=== PATIENT | female | born 1985 | race Caucasian/White ===

== ENCOUNTER → 2017-03-31 | Outpatient (CLI) | payer MEDICARE, MEDICAID ==
--- NOTE | 2017-04-01 09:48 | RADIOLOGY REPORT (SQ) ---
EXAM DESCRIPTION: MRI HEAD COMBO COMPLETED DATE/TIME: 03/31/2017 6:21 pm REASON FOR STUDY: R90.89 OTH ABNORMAL FINDINGS ON DIAGNOSTIC IMAGING OF CNSL R90.89 OTH ABNORMAL FI NDINGS ON DIAGNOSTIC IMAGING OF CNSL COMPARISON: None. TECHNIQUE: Multiplanar imaging includes noncontrasted T1, T2, FLAIR, diffusion with ADC map and post gadolinium contrast T1 sequences. Images stored on PACS. CONTRAST TYPE AND DOSE: 10 mL Multihance. RENAL FUNCTION: GFR > 60. LIMITATIONS: Artifact from eye makeup FINDINGS: ANATOMY: No developmental anomalies. Normal vascular flow voids. Pituitary fossa normal. CSF SPACES: Normal in size and contour. No hemorrhage. CEREBRUM: Small foci of increased FLAIR/ T2 signal noted in the deep periventricular white matter rig ht frontal and parietal region, left frontal subcortical white matter, and in the posterolateral left thalamus, likely reflecting old demyelinating disease. No MRI findings worrisome for acute ischemic change, intracranial hemorrhage, mass effect, for midlin e shift. No abnormal brain parenchymal enhancement. POSTERIOR FOSSA: No signal alteration. No hemorrhage. No edema, masses, or mass effect. Internal leeanne tory canals, cerebellopontine angles, mastoids normal. No enhancing lesions. No abnormal enhancement post contrast. DIFFUSION IMAGING: Negative for acute or subacute infarction. ORBITS: Artifact from eye makeup. PARANASAL SINUSES: No fluid levels. Mucosa normal. OTHER: No other significant finding. IMPRESSION: Few chronic appearing white matter lesions compatible with the clinical history of demye linating disease. No acute findings EVIDENCE OF ACUTE STROKE: NO. TECHNICAL DOCUMENTATION: JOB ID: [id number] [employer]- All Rights Reserved
== END ==
LOC: RAD 16:17
PROVIDERS: ATTEND Psychiatry & Neurology Neurology
DX: R90.89 Other abnormal findings on diagnostic imaging of central nervous system (principal)
CPT/HCPCS: 70553; 82565

== ENCOUNTER 2017-07-22 13:21 | Emergency (ER) | payer MEDICARE, MEDICAID ==
--- NOTE | 2017-07-22 14:02 | ER Document Report ---
ED Medical Screen (RME) - General Chief Complaint: Bloody Stools Stated Complaint: BLOOD IN STOOL,ABDOMINAL PAIN,SWELLING Time Seen by Provider: 07/22/17 13:58 Notes: This 31-year-old female patient with history of MS reports 2 week history of loose stools and diarrhea with bright red blood spraying out. She says she is usually constipated. This has occurred in the past and was reportedly possibly related to polyps that have been removed since then. She has been feeling weak, did not do her MS shot today or yesterday due to feeling so tired and weak. I have greeted and performed a rapid initial assessment of this patient. A comprehensive ED assessment and evaluation of the patient, analysis of test results and completion of the medical decision making process will be conducted by additional ED providers. TRAVEL OUTSIDE OF THE [place] IN LAST 30 DAYS: No - Related Data Allergies/Adverse Reactions: Penicillins Allergy (Intermediate, Verified 07/22/17 13:29) Hives Past Medical History - Social History Frequency of alcohol use: Rare Drug Abuse: None Renal/ Medical History: Denies: Hx Peritoneal Dialysis Physical Exam - Vital signs Vitals: Temp Pulse Resp BP Pulse Ox 98.2 F 94 18 118/84 97 07/22/17 13:30 07/22/17 13:30 07/22/17 13:30 07/22/17 13:30 07/22/17 13:30 Course - Vital Signs Vital signs: Temp Pulse Resp BP Pulse Ox 98.2 F 94 18 118/84 97 07/22/17 13:30 07/22/17 13:30 07/22/17 13:30 07/22/17 13:30 07/22/17 13:30
[2017-07-22 15:16] LABS: ALANINE AMINOTRANSFERASE 34 U/L (9-52); ALBUMIN 4.3 g/dL (3.5-5.0); ALKALINE PHOSPHATASE 57 U/L (38-126); ANION GAP 11 (5-19); ASPARTATE AMINO TRANSFERASE 20 U/L (14-36); BILIRUBIN,DIRECT 0.2 mg/dL (0.0-0.4); BILIRUBIN,TOTAL 0.2 mg/dL (0.2-1.3); BLOOD UREA NITROGEN 14 mg/dL (7-20); CALCIUM 9.9 mg/dL (8.4-10.2); CARBON DIOXIDE 27 mmol/L (22-30); CHLORIDE 104 mmol/L (98-107); GLUCOSE 93 mg/dL (75-110); POTASSIUM 4.8 mmol/L (3.6-5.0); SODIUM 142.1 mmol/L (137-145); TOTAL PROTEIN 7.3 g/dL (6.3-8.2)
[2017-07-22] MEDS ORDERED: ONDANSETRON HCL INJ/PF 4 MG/2 ML SDV IV ONE (15:53)
[2017-07-22] MEDS ORDERED: NORMAL SALINE 1000 ML 1,000 ML IV ONE (15:53)
[2017-07-22] MEDS ORDERED: HYDROMORPHONE HCL INJ/PF 2 MG/ML AMPULE IV ONE (15:55)
--- NOTE | 2017-07-22 15:59 | ER Document Report ---
ED GI Bleed / Rectal Pain - General Chief Complaint: Bloody Stools Stated Complaint: BLOOD IN STOOL,ABDOMINAL PAIN,SWELLING Time Seen by Provider: 07/22/17 13:58 Mode of Arrival: Ambulatory Information source: Patient TRAVEL OUTSIDE OF THE [place] IN LAST 30 DAYS: No - HPI Patient complains to provider of: Bright red bld from rect. Notes: This is a 31-year-old female with a history of MS. She states that for the last 2 weeks she has been having extensive diarrhea. She states that anytime she eats or drinks anything at all she immediately has an episode of diarrhea. She has been having bright red blood in her stool as well as when she wipes. She complains of some abdominal pain with abdominal distention. She states that the pain radiates into her back. She denies any nausea or vomiting. She denies fever. She denies any dysuria or hematuria. She is not on any blood thinning medications. She denies any recent travel outside the [place], recent antibiotic use, recent bad food, known sick contacts. She does report that she has problems with irritable bowel and is not uncommon for her to have some episodes of diarrhea but never this bad. She has had prior she denies any chest pain or shortness of breath. She does complain of some fatigue. Polyps removed via colonoscopy. She has no other complaints at this time. - Related Data Allergies/Adverse Reactions: Penicillins Allergy (Intermediate, Verified 07/22/17 13:29) Hives Home Medications: Levothyroxine, estradiol, oxybutine, gapapentin, copaxone 40mg -W-, baclofen, Iron supplement, Vitamin D, Metoprolol Past Medical History - Social History Smoking Status: Current Every Day Smoker Frequency of alcohol use: Rare Drug Abuse: None Family History: Reviewed & Not Pertinent Patient has suicidal ideation: No Patient has homicidal ideation: No Renal/ Medical History: Denies: Hx Peritoneal Dialysis Past Surgical History: Reports: Hx Abdominal Surgery, Hx Hysterectomy Review of Systems - Review of Systems -: Yes All other systems reviewed and negative Physical Exam - Vital signs Vitals: Temp Pulse Resp BP Pulse Ox 98.2 F 94 18 118/84 97 07/22/17 13:30 07/22/17 13:30 07/22/17 13:30 07/22/17 13:30 07/22/17 13:30 - Notes Notes: GENERAL: alert, cooperative, nontoxic, no distress. HEAD: normocephalic, atraumatic EYES: conjunctiva pink without discharge, no external redness or swelling. EARS: no external swelling, no external redness NOSE: atraumatic, no external swelling MOUTH/THROAT: mucous membranes moist and pink, posterior pharynx without erythema, swelling, exudate. No trismus or drooling. NECK: soft, supple, full range of motion, no meningismus. CHEST: no distress, lungs clear and equal throughout. No wheezing, rales, rhonchi. CARDIAC: regular rate and rhythm, no murmur, normal capillary refill, normal pulses. No peripheral edema noted. ABDOMEN: Soft, tenderness across the lower abdomen. Mild abdominal distention noted. Guarding noted. No rebound tenderness. No obvious mass. Bowel sounds are present throughout. BACK: full range of motion, no CVA tenderness. EXTREMITIES: full range of motion of all extremities. No redness, no swelling. NEURO: alert and oriented x 3, no focal deficits, full range of motion of all extremities. PYSCH: appropriate mood, affect. Patient is cooperative. SKIN: pink, warm, dry, no rash. Course - Re-evaluation Re-evalutation: 07/22/17 18:10 Patient is nontoxic appearing with stable vitals. She is here with complaints of bloody stool and abdominal pain for the past few weeks. She has a benign exam. She does have tenderness to her lower abdomen with some mild distention. No rigidity. She is afebrile. Her hemoglobin is 13. White count is normal. LFTs and lipase are unremarkable. Urinalysis shows no signs of infection. Patient had a CT of the abdomen and pelvis with IV contrast showing colitis worse in the transverse colon. Her C. difficile PCR was negative. Stool cultures are currently pending at this time. This point the patient is feeling better. She will be given Cipro and Flagyl in the emergency department will be discharged home with Cipro, Flagyl, [place]. She will be given a referral to GI. She is instructed to follow-up with GI at the next available appointment. She is instructed to return the emergency department or follow-up sooner if she has worsening pain, high fevers, persistent vomiting, significant bleeding, passing out, or has any further concerns. The patient is noted to have elevated blood pressure during today's emergency department visit. The patient was informed of this finding. The patient was instructed that this may be related to pre-hypertension and requires further evaluation with a primary care provider. The patient has no hypertensive symptoms at this time. The patient's emergency department workup and current diagnosis were explained to the patient and or family. Follow-up instructions were provided. Medications if prescribed were discussed. Instructions for when to return to the emergency department including specific worrisome symptoms were discussed with the patient and/or family. - Vital Signs Vital signs: Temp Pulse Resp BP Pulse Ox 98.2 F 94 18 118/84 97 07/22/17 13:30 07/22/17 13:30 07/22/17 13:30 07/22/17 13:30 07/22/17 13:30 - Laboratory Result Diagrams: 07/22/17 14:48 07/22/17 14:36 Laboratory results interpreted by me: 07/22/17 07/22/17 14:48 15:56 MCV 100 H MCH 34.0 H Urine Bilirubin SMALL H Urine Urobilinogen 2.0 H - Diagnostic Test Radiology reviewed: Image reviewed, Reports reviewed - CT the abdomen and pelvis with IV contrast shows colitis in the transverse colon. No perforation. Discharge - Discharge Clinical Impression: Colitis Condition: Stable Disposition: HOME, SELF-CARE Instructions: Colitis, Nonspecific ([facility]), Family Physicians / Practices Additional Instructions: Take medications as prescribed. Drink plenty of fluids. Follow-up with GI at the next available appointment. Follow-up sooner for increasing pain, high fever, persistent vomiting, severe bleeding, passing out, chest pain, or for any further concerns. Prescriptions: Ciprofloxacin HCl [Cipro 500 mg Tablet] 500 mg PO BID #20 tablet Hydrocodone/Acetaminophen [Springs 5-325 mg Tablet] 2 tab PO Q6H PRN #15 tab PRN Reason: Metronidazole [Flagyl 500 mg Tablet] 500 mg PO Q6H #40 tablet Forms: Elevated Blood Pressure, Smoking Cessation Education Referrals: LINDSAY GONZALEZ PA-C [Primary Care Provider] - Follow up as needed ELSIE LARA MD [ACTIVE STAFF] - Follow up as needed
[2017-07-22 16:15] LABS: APPEARANCE,URINE SLIGHTLY-CLOUDY; BILIRUBIN,URINE SMALL (NEGATIVE); COLOR,URINE YELLOW; GLUCOSE, URINE NEGATIVE (NEGATIVE); KETONES,URINE NEGATIVE (NEGATIVE); LEUKOCYTE ESTERASE,URINE NEGATIVE (NEGATIVE); NITRITE,URINE NEGATIVE (NEGATIVE); PROTEIN,URINE NEGATIVE (NEGATIVE)
[2017-07-22 17:10] LABS: ABSOLUTE EOSINOPHILS # (AUTO) 0.1 10^3/uL (0.0-0.6); ABSOLUTE LYMPHOCYTES (AUTO) 2.6 10^3/uL (0.5-4.7); ABSOLUTE MONOCYTES (AUTO) 0.6 10^3/uL (0.1-1.4); ABSOLUTE NEUT (AUTO) 6.9 10^3/uL (1.7-8.2); BASOPHILS % (AUTO) 0.4 % (0-2); EOSINOPHILS % (AUTO) 1.4 % (0-6); HEMATOCRIT 40.6 % (36.0-47.0); HEMOGLOBIN 13.8 g/dL (12.0-15.5); LYMPHOCYTES % (AUTO) 25.4 % (13-45); MEAN CORPUSCULAR HGB CONC 33.9 g/dL (32.0-36.0); MEAN CORPUSCULAR VOLUME 100 fl (80-97); MONOCYTES % (AUTO) 5.4 % (3-13); PLATELET COUNT 235 10^3/uL (150-450); RED BLOOD COUNT 4.04 10^6/uL (3.72-5.28); SEGMENTED NEUTROPHILS % (AUTO) 67.4 % (42-78); TOTAL CELLS COUNTED % (AUTO) 100 %; WHITE BLOOD COUNT 10.2 10^3/uL (4.0-10.5)
--- NOTE | 2017-07-22 17:53 | RADIOLOGY REPORT (SQ) ---
EXAM DESCRIPTION: CT ABD/PELVIS WITH IV ONLY COMPLETED DATE/TIME: 07/22/2017 5:42 pm REASON FOR STUDY: abdo pain, distention, bloody stool COMPARISON: None. TECHNIQUE: CT scan of the abdomen and pelvis performed using helical scanning technique with dynamic intravenous contrast injection. No oral contrast. Images reviewed with lung, soft tissue, and bone windows. Reconstructed coronal and sagittal MPR images reviewed. Delayed images for evaluation of the urinary system also acquired. All images stored on PACS. All CT scanners at this facility use dose modulation, iterative reconstruction, and/or weight based d osing when appropriate to reduce radiation dose to as low as reasonably achievable (ALARA). [facility]: Dose Right [facility]: CareDose [facility]: Dose Right [facility]: Teradose 4D [facility]: Speakap CONTRAST TYPE AND DOSE: contrast/concentration: Isovue 370.00 mg/ml; Total Contrast Delivered: 68.0 ml; Total Saline Delivered: 65.0 ml RENAL FUNCTION: None required. The patient is less than 50 years old. RADIATION DOSE: CT Rad equipment meets quality standard of care and radiation dose reduction techniq ues were employed. CTDIvol: 5.2 - 6.7 mGy. DLP: 562 mGy-cm.. LIMITATIONS: None. FINDINGS: LOWER CHEST: Dependent subsegmental atelectasis. LIVER: Normal size. Tiny low attenuating lesion right hepatic lobe too small to adequately character ize but statistically represents a benign cyst. No additional masses. No dilated ducts. SPLEEN: Normal size. No focal lesions. PANCREAS: No masses. No significant calcifications. No adjacent inflammation or peripancreatic fluid collections. Pancreatic duct not dilated. GALLBLADDER: No identified stones by CT criteria. No inflammatory changes to suggest cholecystitis. ADRENAL GLANDS: No significant masses or asymmetry. RIGHT KIDNEY AND URETER: No solid masses. No significant calcifications. No hydronephrosis or hyd roureter. LEFT KIDNEY AND URETER: No solid masses. No significant calcifications. No hydronephrosis or hydr oureter. AORTA AND VESSELS: No aneurysm. No dissection. Renal arteries, SMA, celiac without stenosis. RETROPERITONEUM: No retroperitoneal adenopathy, hemorrhage or masses. BOWEL AND PERITONEAL CAVITY: Mucosal thickening with surrounding inflammation predominately involving the transverse colon the with lesser involvement of the distal ascending and proximal descending col on compatible with colitis. Small bowel loops are normal. No pneumatosis, abscess, or free air. No obstruction. APPENDIX: Normal. PELVIS: No mass. No free fluid. Normal bladder. ABDOMINAL WALL: No masses. No hernias. BONES: No significant or acute findings. OTHER: No other significant finding. IMPRESSION: COLITIS MOST SEVERELY AFFECTING THE TRANSVERSE COLON WITH MAY BE INFECTIOUS OR INFLAMMAT ORY. CORRELATE WITH PATIENT'S CLINICAL HISTORY. TECHNICAL DOCUMENTATION: JOB ID: [id number] Quality ID # [id number]: Final reports with documentation of one or more dose reduction techniques (e.g., Au tomated exposure control, adjustment of the mA and/or kV according to patient size, use of iterative reconstruction technique) 2010 [employer]- All Rights Reserved Reading location - IP/workstation name: [email or web address]
[2017-07-22] MEDS ORDERED: CIPROFLOXACIN 400 MG/D5W RTU 400 MG/200 ML RTUPB IV ONE (18:09)
[2017-07-22] MEDS ORDERED: METRONIDAZOLE 500 MG/NS RTU 100 ML IV ONE (18:09)
[2017-07-22] MEDS ORDERED: HYDROCODONE/ACETAMINOPHEN 5-325 MG TABLET PO ONE (18:10)
[2017-07-22 19:59] VITALS: BP 113/70
== END 2017-07-22 19:55 | disposition home or self-care (01) ==
LOC: ER 13:21
DX: K52.9 Noninfective gastroenteritis and colitis, unspecified (principal); K92.1 Melena; R10.9 Unspecified abdominal pain; R19.7 Diarrhea, unspecified; G35 Multiple sclerosis; R14.0 Abdominal distension (gaseous); M54.9 Dorsalgia, unspecified; R03.0 Elevated blood-pressure reading, without diagnosis of hypertension; Z79.899 Other long term (current) drug therapy; F17.200 Nicotine dependence, unspecified, uncomplicated
CPT/HCPCS: 99284; 96361; 96375; 96365; 96368; 36415; 87045; 87205; 85025; 82272; 80053; 81001; 87493; 74177; J1170; J2405; J7030; J0744; A9270

== ENCOUNTER → 2017-08-17 | Outpatient (CLI) | payer MEDICARE, MEDICAID | LOC: WI 11:08 | PROVIDERS: ATTEND Nurse Practitioner Family | DX: Z12.31 Encounter for screening mammogram for malignant neoplasm of breast (principal) ==

== ENCOUNTER → 2017-08-26 | Outpatient (CLI) | payer MEDICARE, MEDICAID ==
--- NOTE | 2017-08-26 14:33 | WOMENS IMAGING REPORT ---
EXAM DESCRIPTION: BILAT DIAGNOSTIC MAMMO W/CAD; U/S BREAST UNILAT LIMITED COMPLETED DATE/TIME: 08/26/2017 12:41 pm; 08/26/2017 1:27 pm REASON FOR STUDY: UNSPECIFIED LUMP; N63.21 N63.11; RT BREAST LUMP N63.11 N63.11 UNSPECIFIED LUMP IN THE RIGHT BREAST, UPPER OUTER JASWANT N63.21 UNSPECIFIED LUMP IN THE LEFT BREAST, UPPER OUTER QUAD COMPARISON: None. TECHNIQUE: Standard craniocaudal and mediolateral oblique views of each breast recorded using digita l acquisition. Additional right breast 90 mediolateral view, right breast cone compression in the cc and x cc orien tations. Right breast ultrasound was also performed. LIMITATIONS: None. FINDINGS: RIGHT BREAST MASSES: No suspicious masses. CALCIFICATIONS: No new or suspicious calcifications. ARCHITECTURAL DISTORTION: None. DEVELOPING DENSITY: None. ASYMMETRY: None noted. OTHER: No other significant findings. LEFT BREAST MASSES: No suspicious masses. CALCIFICATIONS: No new or suspicious calcifications. ARCHITECTURAL DISTORTION: None. DEVELOPING DENSITY: None. ASYMMETRY: None noted. OTHER: No other significant finding. Read with the assistance of CAD: .[facility] - R2 Cenova Version 1.3 .[facility] Imaging - R2 Cenova Version 1.3 .[facility] - R2 Cenova Version 2.4 .[facility] [place] R2 Cenova Version 2.4 .[facility] - R2 Butadiene Converter Operator Version 9.2 Right breast ultrasound: Patient indicates a palpable abnormality in the upper outer quadrant right breast 10 to 11 o'clock po sition. Ultrasound of the area of concern indicated by the patient demonstrates no focal findings. No cysts. No solid nodules. No worrisome acoustic absorption. IMPRESSION: No mammographic or sonographic evidence for malignancy right breast. No mammographic evidence for malignancy left breast BREAST DENSITY: b. There are scattered areas of fibroglandular density. BIRAD: 1 Negative. RECOMMENDATION: RECOMMENDED FOLLOW UP: Please begin yearly bilateral screening mammography/ tomosynt hesis at age 40. Patient can begin screening sooner, if she is found to have an increased lifetime r isk of breast cancer using the Ericka model assessment SPECIFIC INTERVENTION/IMAGING/CONSULTATION RECOMMENDED:No additional intervention/ imaging/consultati on needed at this time. COMMUNICATION:Patient notified by letter COMMENT: The patient has been notified of the results by letter per MQSA requirements. Additional no tification policies are in place for contacting patient with suspicious or incomplete findings. Quality ID #225: The [employer] recommends an annual screening mammogram for women aged 40 years or over. This facility utilizes a reminder system to ensure that all patients receive reminder letters, and/or direct phone calls for appointments. This includes reminders for routine scr eening mammograms, diagnostic mammograms, or other Breast Imaging Interventions when appropriate. Th is patient will be placed in the appropriate reminder system. The [employer] (ACR) has developed recommendations for screening MRI of the breast s in certain patient populations, to be used in conjunction with mammography. Breast MRI surveillanc e may be appropriate for women with more than 20% lifetime risk of developing breast cancer as deter mined by genetic testing, significant family history of the disease, or history of mantle radiation f or Hodgkins Disease. ACR Practice Guidelines 2008. TECHNICAL DOCUMENTATION: FINDING NUMBER: (1) ASSESSMENT: (1) JOB ID: [id number] 2021 [employer]- All Rights Reserved Reading location - IP/workstation name: [email or web address]
--- NOTE | 2017-08-26 14:33 | WOMENS IMAGING REPORT ---
EXAM DESCRIPTION: BILAT DIAGNOSTIC MAMMO W/CAD; U/S BREAST UNILAT LIMITED COMPLETED DATE/TIME: 08/26/2017 12:41 pm; 08/26/2017 1:27 pm REASON FOR STUDY: UNSPECIFIED LUMP; N63.21 N63.11; RT BREAST LUMP N63.11 N63.11 UNSPECIFIED LUMP IN THE RIGHT BREAST, UPPER OUTER JASWANT N63.21 UNSPECIFIED LUMP IN THE LEFT BREAST, UPPER OUTER QUAD COMPARISON: None. TECHNIQUE: Standard craniocaudal and mediolateral oblique views of each breast recorded using digita l acquisition. Additional right breast 90 mediolateral view, right breast cone compression in the cc and x cc orien tations. Right breast ultrasound was also performed. LIMITATIONS: None. FINDINGS: RIGHT BREAST MASSES: No suspicious masses. CALCIFICATIONS: No new or suspicious calcifications. ARCHITECTURAL DISTORTION: None. DEVELOPING DENSITY: None. ASYMMETRY: None noted. OTHER: No other significant findings. LEFT BREAST MASSES: No suspicious masses. CALCIFICATIONS: No new or suspicious calcifications. ARCHITECTURAL DISTORTION: None. DEVELOPING DENSITY: None. ASYMMETRY: None noted. OTHER: No other significant finding. Read with the assistance of CAD: .[facility] - R2 Cenova Version 1.3 .[facility] Imaging - R2 Cenova Version 1.3 .[facility] Imaging - R2 Cenova Version 2.4 .[facility] [place] R2 Cenova Version 2.4 .[facility] - R2 Digital Asset Coordinator Version 9.2 Right breast ultrasound: Patient indicates a palpable abnormality in the upper outer quadrant right breast 10 to 11 o'clock po sition. Ultrasound of the area of concern indicated by the patient demonstrates no focal findings. No cysts. No solid nodules. No worrisome acoustic absorption. IMPRESSION: No mammographic or sonographic evidence for malignancy right breast. No mammographic evidence for malignancy left breast BREAST DENSITY: b. There are scattered areas of fibroglandular density. BIRAD: 1 Negative. RECOMMENDATION: RECOMMENDED FOLLOW UP: Please begin yearly bilateral screening mammography/ tomosynt hesis at age 40. Patient can begin screening sooner, if she is found to have an increased lifetime r isk of breast cancer using the Ericka model assessment SPECIFIC INTERVENTION/IMAGING/CONSULTATION RECOMMENDED:No additional intervention/ imaging/consultati on needed at this time. COMMUNICATION:Patient notified by letter COMMENT: The patient has been notified of the results by letter per MQSA requirements. Additional no tification policies are in place for contacting patient with suspicious or incomplete findings. Quality ID #225: The [employer] recommends an annual screening mammogram for women aged 40 years or over. This facility utilizes a reminder system to ensure that all patients receive reminder letters, and/or direct phone calls for appointments. This includes reminders for routine scr eening mammograms, diagnostic mammograms, or other Breast Imaging Interventions when appropriate. Th is patient will be placed in the appropriate reminder system. The [employer] (ACR) has developed recommendations for screening MRI of the breast s in certain patient populations, to be used in conjunction with mammography. Breast MRI surveillanc e may be appropriate for women with more than 20% lifetime risk of developing breast cancer as deter mined by genetic testing, significant family history of the disease, or history of mantle radiation f or Hodgkins Disease. ACR Practice Guidelines 2008. TECHNICAL DOCUMENTATION: FINDING NUMBER: (1) ASSESSMENT: (1) JOB ID: [id number] [employer]- All Rights Reserved Reading location - IP/workstation name: [facility]
== END ==
LOC: WI 12:13
PROVIDERS: ATTEND Physician Assistant Medical
DX: N63.11 Unspecified lump in the right breast, upper outer quadrant (principal); N63.21 Unspecified lump in the left breast, upper outer quadrant
CPT/HCPCS: 76642; 77066

== ENCOUNTER 2017-09-24 15:12 | Emergency (ER) | payer MEDICARE, MEDICAID ==
[2017-09-24] MEDS ORDERED: IBUPROFEN 600 MG TABLET PO ONE (15:54)
--- NOTE | 2017-09-24 16:34 | RADIOLOGY REPORT (SQ) ---
EXAM DESCRIPTION: FOOT RIGHT COMPLETE COMPLETED DATE/TIME: 09/24/2017 4:20 pm REASON FOR STUDY: pain and injury COMPARISON: None. NUMBER OF VIEWS: Three views. TECHNIQUE: AP, lateral and oblique radiographic images acquired of the right foot. LIMITATIONS: None. FINDINGS: MINERALIZATION: Normal. BONES: No acute fracture or dislocation. No worrisome bone lesions. JOINTS: No effusions. SOFT TISSUES: No soft tissue swelling. No foreign body. OTHER: No other significant finding. IMPRESSION: NEGATIVE STUDY OF THE RIGHT FOOT. NO RADIOGRAPHIC EVIDENCE OF ACUTE INJURY. TECHNICAL DOCUMENTATION: JOB ID: [id number] [employer]- All Rights Reserved Reading location - IP/workstation name: [email or web address]
--- NOTE | 2017-09-24 16:34 | RADIOLOGY REPORT (SQ) ---
EXAM DESCRIPTION: ANKLE RIGHT COMPLETE COMPLETED DATE/TIME: 09/24/2017 4:20 pm REASON FOR STUDY: pain and injury COMPARISON: None. NUMBER OF VIEWS: Three views. TECHNIQUE: AP, lateral, and oblique radiographic images acquired of the right ankle. LIMITATIONS: None. FINDINGS: MINERALIZATION: Normal. BONES: No acute fracture or dislocation. No worrisome bone lesions. JOINTS: No effusions. SOFT TISSUES: No soft tissue swelling. No foreign body. OTHER: No other significant finding. IMPRESSION: NEGATIVE STUDY OF THE RIGHT ANKLE. NO RADIOGRAPHIC EVIDENCE OF ACUTE INJURY. TECHNICAL DOCUMENTATION: JOB ID: [id number] [employer]- All Rights Reserved Reading location - IP/workstation name: [email or web address]
--- NOTE | 2017-09-24 17:04 | ER Document Report ---
ED Extremity Problem, Lower - General Chief Complaint: Ankle Injury Stated Complaint: ANKLE INJURY Time Seen by Provider: 09/24/17 15:53 Mode of Arrival: Wheelchair Information source: Patient Notes: 32-year-old female presented to ED for pain to the right foot and ankle after she was in the nose and tried to get out of her for left and she ended up hitting something in the [place]. Patient states he jumped out of the way of a forklift because she has multiple sclerosis and she was scared that she would get some type of infection of the forklift hit her. Patient is alert and oriented, pupils equal and react to light, speaking in full sentences, respirations regular and unlabored, patient is able to walk with some discomfort. TRAVEL OUTSIDE OF THE [place] IN LAST 30 DAYS: No - HPI Patient complains to provider of: Injury, Pain Location: Ankle, Foot Occurred: Just prior to arrival Where: Public place Onset/Duration: Sudden Quality of pain: Achy, Pressure Severity: Moderate Pain Level: 3 Context: Other - Hit her foot and ankle on something in the low store Recent injury: Yes Associated symptoms: Painful ambulation Exacerbated by: Hanging down, Movement, Walking Relieved by: Nothing - Related Data Allergies/Adverse Reactions: Penicillins Allergy (Intermediate, Verified 07/22/17 13:29) Hives Past Medical History - General Information source: Patient - Social History Smoking Status: Current Every Day Smoker Cigarette use (# per day): Yes - 7 cigarettes a day Chew tobacco use (# tins/day): No Smoking Education Provided: Yes - 4 minutes Frequency of alcohol use: Social Drug Abuse: None Lives with: Family Family History: Reviewed & Not Pertinent Patient has suicidal ideation: No Patient has homicidal ideation: No - Past Medical History Cardiac Medical History: Reports: Other - She had tachycardia that is being evaluated Pulmonary Medical History: Reports: None EENT Medical History: Reports: None Neurological Medical History: Reports: None Endocrine Medical History: Reports: Hx Hypothyroidism Renal/ Medical History: Reports: Hx Ovarian Cysts Malignancy Medical History: Reports: None GI Medical History: Reports: Hx Colonoscopy Musculoskeltal Medical History: Reports Hx Multiple Sclerosis, Reports Hx Musculoskeletal Trauma Skin Medical History: Reports None Psychiatric Medical History: Reports: None Traumatic Medical History: Reports: None Infectious Medical History: Reports: None Past Surgical History: Reports: Hx Abdominal Surgery, Hx Gynecologic Surgery - Removal of ovarian cyst, Hx Hysterectomy, Hx Nose Surgery - For fracture Review of Systems - Review of Systems Constitutional: No symptoms reported EENT: No symptoms reported Cardiovascular: No symptoms reported Respiratory: No symptoms reported Gastrointestinal: No symptoms reported Genitourinary: No symptoms reported Female Genitourinary: No symptoms reported Musculoskeletal: Other - Pain abrasion to right foot and ankle Skin: No symptoms reported Hematologic/Lymphatic: No symptoms reported Neurological/Psychological: No symptoms reported -: Yes All other systems reviewed and negative Physical Exam - Vital signs Vitals: Temp Pulse Resp BP Pulse Ox 98.4 F 80 20 115/66 98 09/24/17 15:16 09/24/17 15:16 09/24/17 15:16 09/24/17 15:16 09/24/17 15:16 Interpretation: Normal - General General appearance: Appears well, Alert - HEENT Head: Normocephalic, Atraumatic Eyes: Normal Pupils: PERRL - Respiratory Respiratory status: No respiratory distress Chest status: Nontender Breath sounds: Normal Chest palpation: Normal - Cardiovascular Rhythm: Regular Heart sounds: Normal auscultation Murmur: No - Abdominal Inspection: Normal Distension: No distension Bowel sounds: Normal Tenderness: Nontender Organomegaly: No organomegaly - Back Back: Normal, Nontender - Extremities General upper extremity: Normal inspection, Nontender, Normal color, Normal ROM , Normal temperature General lower extremity: Normal color, Normal temperature. No: Thais's sign Ankle: Tender, Abrasion, Ecchymosis. No: Deformity, Edema, Instability, Laceration, Limited ROM, Positive Nava's test, Unable to bear weight - Pain with ambulation Foot: Tender, Abrasion, Ecchymosis, No evidence of FB - With ambulation. No: Deformity, Edema, Instability, Laceration, Metatarsal compress. pain, Nail injury, Navicular tenderness, Puncture wound, Tender 5th metatarsal, Unable to bear weight - Neurological Neuro grossly intact: Yes Cognition: Normal Orientation: AAOx4 Hazel Coma Scale Eye Opening: Spontaneous [place]le Coma Scale Verbal: Oriented [place]le Coma Scale Motor: Obeys Commands Hazel Coma Scale Total: 15 Speech: Normal Motor strength normal: LUE, RUE, LLE, RLE Sensory: Normal - Psychological Associated symptoms: Normal affect, Normal mood - Skin Skin Temperature: Warm Skin Moisture: Dry Skin Color: Normal Course - Re-evaluation Re-evalutation: 09/24/17 17:03 X-rays discussed with patient and written report of x-rays given the patient for follow-up with her primary doctor. There is no fractures noted at this time. Patient states she bumped her ankle and foot against an object in the store. Patient was offered a Nahid wrap and crutches and she refused both. Patient was treated with ibuprofen and discharged home. - Vital Signs Vital signs: Temp Pulse Resp BP Pulse Ox 98 F 76 16 122/72 97 09/24/17 17:30 09/24/17 17:30 09/24/17 17:30 09/24/17 17:30 09/24/17 17:30 - Diagnostic Test Radiology reviewed: Image reviewed, Reports reviewed Discharge - Discharge Clinical Impression: Contusion of right ankle, initial encounter Contusion of right foot Qualifiers: Encounter type: initial encounter Qualified Code(s): S90.31XA - Contusion of right foot, initial encounter Condition: Stable Disposition: HOME, SELF-CARE Additional Instructions: CONTUSION: Your injury has resulted in a contusion -- a crushing of the deep tissues. No injury to important structures was detected during the physician's exam. Contusions vary in the amount of pain they cause, and in the length of time required for healing. Typically, the area will become bruised, and will remain painful to touch for two or three weeks. However, most patients are back to working and playing within a few days. After the initial period of rest and cold-packs, your symptoms (together with the doctor's recommendations) will determine how rapidly you can get back to full activity. Usually this means "do what feels okay, but don't do things that hurt." If re-examination was recommended, it's important to follow up as instructed. Call the doctor or return any time if pain increases, if swelling becomes severe, if you develop numbness or weakness in an injured extremity, or if any other alarming symptoms occur. USE OF TYLENOL (ACETAMINOPHEN): Acetaminophen may be taken for pain relief or fever control. It's much safer than aspirin, offering a wider range of "safe" dosages. It is safe during . Some brand names are Tylenol, Panadol, Datril, Anacin 3, Tempra, and Liquiprin. Acetaminophen can be repeated every four hours. The following are maximum recommended dosages: WEIGHT Dose Drops Elixir Chewable( 80mg) (LBS.) drprs=droppers tsp=teaspoon 6 40 mg 0.4 ml (1/2) 6-11 80 mg 0.8 ml (full) tsp 1 tab 12-16 120 mg 1 1/2 drprs 3/4 tsp 1 1/2 tabs 17-23 160 mg 2 drprs 1 tsp 2 tabs 24-30 240 mg 3 drprs 1 1/2 tsp 3 tabs 30-35 320 mg 2 tsp 4 tabs 36-41 360 mg 2 1/4 tsp 4 1/2 tabs 42-47 400 mg 2 1/2 tsp 5 tabs 48-53 480 mg 3 tsp 6 tabs 54-59 520 mg 3 1/4 tsp 6 1/2 tabs 60-64 560 mg 3 1/2 tsp 7 tabs 65-70 600 mg 3 3/4 tsp 7 1/2 tabs 71-76 640 mg 4 tsp 8 tabs 77-82 720 mg 4 1/2 tsp 9 tabs 83-88 800 mg 5 tsp 10 tabs >89 pounds or adults 650 mg to 900 mg Acetaminophen can be repeated every four hours. Maximum dose not to exceed 4000 mg a day. These maximum recommended dosages are slightly higher than the dosages written on the product container, but these dosages are very safe and below the toxic dosage for acetaminophen. ICE & ELEVATION: Apply ice packs frequently against the painful area. Many different schedules are recommended, such as "20 minutes on, 20 minutes off" or "one hour ice, two hours rest." If you need to work, you may need to go longer between ice treatments. You should plan to have the area ice packed AT LEAST one- fourth of the time. The ice should be applied over the wrap, tape, or splint, or over a layer of cloth -- not directly against the skin. Some ice bags have a built-in cloth and can be put directly on the skin. Your injured part should be elevated as much as possible over the next 48 hours. Try to keep the injury above the level of the heart. Avoid use of the injured area. Elevation and rest will decrease the swelling. USE OF JAPY-MLP-CTCMALX IBUPROFEN: Ibuprofen (Advil, Nuprin, Medipren, Motrin IB) is a medication for fever and pain control. In addition, it has anti- inflammatory effects which may be beneficial, especially in the treatment of injuries. It's best to take ibuprofen with food. Persons with ulcer disease or allergy to aspirin should notify their physician of this before taking ibuprofen. Ibuprofen can be given every four to six hours, for a total of four doses daily. Age Pain or fever dose Antiinflammatory dose 6-8 yr 200 mg (1 tab) 200 mg (1 tab) 9-11 yr 200 mg (1 tab) 200-400 mg (1-2 tab) 11-14 yr 200-400 mg (1-2 tab) 400 mg (2 tab) 15-adult 400 mg (2 tab) 600 mg (3 tab) FOLLOW-UP CARE: If you have been referred to a physician for follow-up care, call the physician s office for an appointment as you were instructed or within the next two days. If you experience worsening or a significant change in your symptoms, notify the physician immediately or return to the Emergency Department at any time for re-evaluation. Forms: Smoking Cessation Education Referrals: LINDSAY GONZALEZ PA-C [Primary Care Provider] - Follow up as needed
[2017-09-24 17:37] VITALS: BP 122/72
== END 2017-09-24 17:30 | disposition home or self-care (01) ==
LOC: ER 15:12
DX: S90.01XA Contusion of right ankle, initial encounter (principal); S90.31XA Contusion of right foot, initial encounter; M25.571 Pain in right ankle and joints of right foot; M79.671 Pain in right foot; W22.8XXA Striking against or struck by other objects, initial encounter; Y93.89 Activity, other specified; Y92.512 Supermarket, store or market as the place of occurrence of the external cause; G35 Multiple sclerosis; F17.210 Nicotine dependence, cigarettes, uncomplicated; Z71.6 Tobacco abuse counseling; Z88.0 Allergy status to penicillin
CPT/HCPCS: 99406; 99283; 73610; 73630; A9270

== ENCOUNTER 2018-03-15 11:49 | Emergency (ER) | payer MEDICAID, MEDICARE ==
[2018-03-15 12:12] VITALS: BP 139/93
[2018-03-15] MEDS ORDERED: DIAZEPAM 2 MG TABLET PO ONE (12:32)
[2018-03-15] MEDS ORDERED: KETOROLAC TROMETHAMINE 10 MG TABLET PO ONE (12:32)
--- NOTE | 2018-03-15 12:50 | ER Document Report ---
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 The pain is constant with on and off exacerbation by movement of the arm. She is also having higher blood pressure. Has a history of high blood pressure was taking lisinopril. She took 2 of them before coming to the ED. And she also noted some bloating sensation or feeling throughout the whole body. Denies any headache dizziness, precordial chest pain, nausea vomiting. Onset: As above Duration: Gradual Severity: Continuous Quality: Mild to moderate Context: As described above Exacerbating factor and relieving factors: REVIEW OF SYSTEMS: CONSTITUTIONAL : Denies fever, chills, or sweats. Denies recent illness. EENT: Denies eye, ear, throat, or mouth pain or symptoms. Denies nasal or sinus congestion or discharge. Denies throat, tongue, or mouth swelling or difficulty swallowing. CARDIOVASCULAR: Denies chest pain. Denies palpitations or racing or irregular heart beat. Denies ankle edema. RESPIRATORY: Denies cough, cold, or chest congestion. Denies shortness of breath, difficulty breathing, or wheezing. GASTROINTESTINAL: Denies distention. Denies nausea, vomiting, or diarrhea. Denies blood in vomitus, stools, or per rectum. Denies black, tarry stools. Denies constipation. GENITOURINARY: Denies difficulty urinating, painful urination, burning, frequency, blood in urine, or discharge. FEMALE GENITOURINARY: Denies vaginal bleeding, heavy or abnormal periods, irregular periods. Denies vaginal discharge or odor. MUSCULOSKELETAL: Denies back or neck pain or stiffness. Denies joint pain or swelling. SKIN: Denies rash, lesions or sores. HEMATOLOGIC : Denies easy bruising or bleeding. LYMPHATIC: Denies swollen, enlarged glands. NEUROLOGICAL: Denies confusion or altered mental status. Denies passing out or loss of consciousness. Denies dizziness or lightheadedness. Denies headache. Denies weakness or paralysis or loss of use of either side. Denies problems with gait or speech. Denies sensory loss, numbness, or tingling. Denies seizures. PSYCHIATRIC: Denies anxiety or stress. Denies depression, suicidal ideation, or homicidal ideation. ALL OTHER SYSTEMS REVIEWED AND NEGATIVE. PHYSICAL EXAMINATION: GENERAL: Well-appearing, well-nourished and in no acute distress. HEAD: Atraumatic, normocephalic. EYES: Pupils equal round and reactive to light, extraocular movements intact, conjunctiva are normal. ENT: Nares patent, oropharynx clear without exudates. Moist mucous membranes. NECK: Normal range of motion, supple without lymphadenopathy LUNGS: Breath sounds clear to auscultation bilaterally and equal. No wheezes rales or rhonchi. HEART: Regular rate and rhythm without murmurs ABDOMEN: Soft, nontender, nondistended abdomen. No guarding, no rebound. No masses appreciated. Examination of genitals-deferred Musculoskeletal: Normal range of motion, sharp tenderness were noted over the trapezius muscle as well as right anterior chest wall. NEUROLOGICAL: Cranial nerves grossly intact. Normal speech, normal gait. Normal sensory, motor exams PSYCH: Normal mood, normal affect. SKIN: Warm, Dry, normal turgor, no rashes or lesions noted. Dictation was performed using [employer] voice recognition software TRAVEL OUTSIDE OF THE [place] IN LAST 30 DAYS: No - HPI Notes: Dictated - Related Data Allergies/Adverse Reactions: Penicillins Allergy (Intermediate, Verified 03/15/18 11:51) Hives Past Medical History - Social History Smoking Status: Current Every Day Smoker Chew tobacco use (# tins/day): Yes Frequency of alcohol use: Rare Drug Abuse: None, Marijuana Family History: Reviewed & Not Pertinent Patient has suicidal ideation: No Patient has homicidal ideation: No - Past Medical History Cardiac Medical History: Reports: Hx Hypertension Endocrine Medical History: Reports: Hx Hypothyroidism Renal/ Medical History: Reports: Hx Ovarian Cysts. Denies: Hx Peritoneal Dialysis GI Medical History: Reports: Hx Colonoscopy Musculoskeletal Medical History: Reports Hx Multiple Sclerosis, Reports Hx Musculoskeletal Trauma Past Surgical History: Reports: Hx Abdominal Surgery, Hx Gynecologic Surgery - Removal of ovarian cyst, Hx Hysterectomy, Hx Nose Surgery - For fracture Review of Systems - Review of Systems Notes: Dictated Physical Exam - Vital signs Vitals: Temp Pulse Resp BP Pulse Ox 97.7 F 65 18 139/93 H 100 03/15/18 12:09 03/15/18 12:09 03/15/18 12:09 03/15/18 12:09 03/15/18 12:09 - Notes Notes: Dictated Course - Vital Signs Vital signs: Temp Pulse Resp BP Pulse Ox 97.7 F 65 18 139/93 H 100 03/15/18 12:09 03/15/18 12:09 03/15/18 12:09 03/15/18 12:09 03/15/18 12:09 - Laboratory Result Diagrams: 03/15/18 13:23 03/15/18 13:23 Laboratory results interpreted by me: 03/15/18 13:23 [facility] 34.2 H - Diagnostic Test Radiology reviewed: Reports reviewed - Chest x-ray was reported by radiologist as normal Discharge - Discharge Clinical Impression: Chest wall pain Trapezius strain Qualifiers: Encounter type: initial encounter Laterality: right Qualified Code(s): S46.811A - Strain of other muscles, fascia and tendons at shoulder and upper arm level, right arm, initial encounter Hypertension Qualifiers: Hypertension type: essential hypertension Qualified Code(s): I10 - Essential ( primary) hypertension Condition: Fair Disposition: HOME, SELF-CARE Instructions: Chest Wall Pain ([facility]), Anti-Inflammatory Medication ([facility]) Prescriptions: Diazepam [Valium 2 mg Tablet] 2 mg PO BID #10 tablet Lisinopril/Hydrochlorothiazide [Lisinopril-Hctz 10-12.5 mg Tab] 1 each PO DAILY #30 tablet Naproxen 500 mg PO BID #30 tablet.dr Referrals: ELSIE LARA MD [Primary Care Provider] - Follow up as needed
--- NOTE | 2018-03-15 13:13 | RADIOLOGY REPORT (SQ) ---
EXAM DESCRIPTION: CHEST 2 VIEWS COMPLETED DATE/TIME: 03/15/2018 12:57 pm REASON FOR STUDY: cp COMPARISON: None. EXAM PARAMETERS: NUMBER OF VIEWS: two views TECHNIQUE: Digital Frontal and Lateral radiographic views of the chest acquired. RADIATION DOSE: NA LIMITATIONS: none FINDINGS: LUNGS AND PLEURA: No opacities, masses or pneumothorax. No pleural effusion. MEDIASTINUM AND HILAR STRUCTURES: No masses or contour abnormalities. HEART AND VASCULAR STRUCTURES: Heart normal size. No evidence for failure. BONES: No acute findings. HARDWARE: None in the chest. OTHER: No other significant finding. IMPRESSION: Normal chest radiographs. TECHNICAL DOCUMENTATION: JOB ID: [id number] [employer] All Rights Reserved Reading location - IP/workstation name: [email or web address]
[2018-03-15 13:37] LABS: ABSOLUTE BASOPHILS # (AUTO) 0.1 10^3/uL (0.0-0.2); ABSOLUTE EOSINOPHILS # (AUTO) 0.1 10^3/uL (0.0-0.6); ABSOLUTE MONOCYTES (AUTO) 0.4 10^3/uL (0.1-1.4); ABSOLUTE NEUT (AUTO) 7.7 10^3/uL (1.7-8.2); BASOPHILS % (AUTO) 0.5 % (0-2); EOSINOPHILS % (AUTO) 0.6 % (0-6); HEMATOCRIT 38.4 % (36.0-47.0); HEMOGLOBIN 13.5 g/dL (12.0-15.5); LYMPHOCYTES % (AUTO) 19.2 % (13-45); MEAN CORPUSCULAR HEMOGLOBIN 34.2 pg (27.0-33.4); MEAN CORPUSCULAR HGB CONC 35.2 g/dL (32.0-36.0); MEAN CORPUSCULAR VOLUME 97 fl (80-97); MONOCYTES % (AUTO) 4.2 % (3-13); PLATELET COUNT 223 10^3/uL (150-450); RED BLOOD COUNT 3.95 10^6/uL (3.72-5.28); RED CELL DISTRIBUTION WIDTH 12.6 % (11.5-14.0); SEGMENTED NEUTROPHILS % (AUTO) 75.5 % (42-78); TOTAL CELLS COUNTED % (AUTO) 100 %; WHITE BLOOD COUNT 10.2 10^3/uL (4.0-10.5)
[2018-03-15 13:42] LABS: APPEARANCE,URINE CLEAR; BILIRUBIN,URINE NEGATIVE (NEGATIVE); COLOR,URINE YELLOW; GLUCOSE, URINE NEGATIVE (NEGATIVE); KETONES,URINE NEGATIVE (NEGATIVE); LEUKOCYTE ESTERASE,URINE NEGATIVE (NEGATIVE); NITRITE,URINE NEGATIVE (NEGATIVE); PROTEIN,URINE NEGATIVE (NEGATIVE); URINE SPECIFIC GRAVITY 1.013; UROBILINOGEN,URINE NEGATIVE mg/dL (<2.0)
[2018-03-15 14:00] LABS: ALANINE AMINOTRANSFERASE 25 U/L (9-52); ALBUMIN 4.4 g/dL (3.5-5.0); ALKALINE PHOSPHATASE 67 U/L (38-126); ANION GAP 10 (5-19); ASPARTATE AMINO TRANSFERASE 26 U/L (14-36); BILIRUBIN,DIRECT 0.2 mg/dL (0.0-0.4); BILIRUBIN,TOTAL 0.3 mg/dL (0.2-1.3); BLOOD UREA NITROGEN 8 mg/dL (7-20); CALCIUM 9.3 mg/dL (8.4-10.2); CARBON DIOXIDE 29 mmol/L (22-30); CHLORIDE 106 mmol/L (98-107); GLUCOSE 92 mg/dL (75-110); POTASSIUM 4.7 mmol/L (3.6-5.0); SODIUM 144.5 mmol/L (137-145); TOTAL PROTEIN 7.3 g/dL (6.3-8.2)
--- NOTE | 2018-03-16 09:32 | EKG REPORT ---
SEVERITY:- BORDERLINE ECG - SINUS RHYTHM INFERIOR Q WAVES, PROBABLY NORMAL VARIATION : Confirmed by: Hortensia Hill 16-Mar-2018 09:31:58
== END 2018-03-15 15:14 | disposition home or self-care (01) ==
LOC: ER 11:49
DX: R07.89 Other chest pain (principal); S29.012A Strain of muscle and tendon of back wall of thorax, initial encounter; X58.XXXA Exposure to other specified factors, initial encounter; M25.511 Pain in right shoulder; M79.601 Pain in right arm; F17.200 Nicotine dependence, unspecified, uncomplicated; I10 Essential (primary) hypertension; Z79.899 Other long term (current) drug therapy; Z88.0 Allergy status to penicillin
CPT/HCPCS: 93005; 99284; 36415; 85025; 81025; 80053; 81001; 71046; 93010; A9270 ×2; J3490

== ENCOUNTER → 2018-03-28 | Outpatient (CLI) | payer MEDICAID, MEDICARE ==
--- NOTE | 2018-03-28 08:26 | RADIOLOGY REPORT (SQ) ---
EXAM DESCRIPTION: U/S ABDOMEN LIMITED W/O DOP COMPLETED DATE/TIME: 03/28/2018 8:11 am REASON FOR STUDY: ABD TENDERNESS- EPIGASTRIC (R10.816), NAUSEA (R11.0) R10.816 EPIGASTRIC ABDOMINAL TENDERNESS R11.0 NAUSEA COMPARISON: None. TECHNIQUE: Dynamic and static grayscale images acquired of the abdomen and recorded on PACS. Additio nal selected color Doppler and spectral images recorded. LIMITATIONS: None. FINDINGS: PANCREAS: The head and body of the pancreas are of normal echogenicity. The tail of the pancreas is suboptimally visualized due to overlying bowel gas. LIVER: Hepatomegaly, the liver measures 18.8 cm in length. No masses. Echotexture normal. LIVER VASCULATURE: Normal directional flow of the main portal vein and hepatic veins. GALLBLADDER: Small amount of gallbladder sludge. The gallbladder wall measures 2.0 mm, normal wall t hickness. No pericholecystic fluid. ULTRASOUND-DETECTED HASSAN'S SIGN: Negative. INTRAHEPATIC DUCTS AND COMMON DUCT: CBD measures 3.6 mm in diameter, normal. The intrahepatic ducts normal caliber. No filling defects. INFERIOR VENA CAVA: Normal flow. AORTA: No aneurysm. RIGHT KIDNEY: The right kidney measures 10.7 cm in length, normal size. Normal echogenicity. Extra renal pelvis, normal anatomic variant. No calcifications. PERITONEAL AND RIGHT PLEURAL SPACE: No ascites or effusions. OTHER: No other significant findings. IMPRESSION: 1. The tail of the pancreas is suboptimally visualized due to overlying bowel gas. 2. Hepatomegaly. 3. Small amount of gallbladder sludge. TECHNICAL DOCUMENTATION: JOB ID: [id number] [employer]- All Rights Reserved Reading location - IP/workstation name: [email or web address]
== END ==
LOC: RAD 07:37
PROVIDERS: ATTEND Internal Medicine Gastroenterology
DX: R10.816 Epigastric abdominal tenderness (principal); R11.0 Nausea
CPT/HCPCS: 76705

== ENCOUNTER 2018-06-04 13:18 | Emergency (ER) | payer MEDICAID, MEDICARE ==
[2018-06-04] MEDS ORDERED: NORMAL SALINE 1000 ML 1,000 ML IV ONE (13:51)
[2018-06-04] MEDS ORDERED: KETOROLAC TROMETHAMINE INJ/PF 30 MG/1 ML SDV IV ONE (13:52)
[2018-06-04] MEDS ORDERED: METHYLPREDNISOLONE INJ 500 MG VIAL IV ONE ×2 (13:53→16:07)
[2018-06-04] MEDS ORDERED: ONDANSETRON HCL INJ/PF 4 MG/2 ML SDV IV ONE (13:53)
--- NOTE | 2018-06-04 13:55 | ER Document Report ---
ED Medical Screen (RME) - General Chief Complaint: General Weakness Stated Complaint: WEAKNESS,MUSCLE PAIN Time Seen by Provider: 06/04/18 13:44 Primary Care Provider: ELSIE LARA MD [Primary Care Provider] - Follow up as needed Notes: Patient is a 32-year-old female with MS that presents to the emergency department for chief complaint of weakness, legs giving out, and confusion. Patient reports waking up later today, think she may be having an MS flare, she states she fell twice at home injuring her, elbow she is confused and does not remember dates and times. ROS: Other than noted above, the 12 point review of systems was reviewed with the patient and were negative, all pertinent findings are included in the HPI. PHYSICAL EXAMINATION: Vital signs reviewed. GENERAL: Patient is in distress, and appears confused. HEAD: Atraumatic, normocephalic. EYES: Pupils equal round extraocular movements intact, conjunctiva are normal. ENT: Nares patent NECK: Normal range of motion CV: Heart regular rate and rhythm LUNGS: No respiratory distress Musculoskeletal: Normal range of motion NEUROLOGICAL: Normal speech PSYCH: Patient appears anxious, tearful and confused MDM: Patient seen and examined for rapid initial assessment. Vital signs reviewed. A comprehensive ED assessment and evaluation of the patient, analysis of test results and completion of the medical decision making process will be conducted by additional ED providers. *Note is created using voice recognition software and may contain spelling, syntax or grammatical errors. TRAVEL OUTSIDE OF THE [place] IN LAST 30 DAYS: No - Related Data Allergies/Adverse Reactions: Penicillins Allergy (Intermediate, Verified 03/15/18 11:51) Hives Past Medical History - Social History Chew tobacco use (# tins/day): No Frequency of alcohol use: daily Drug Abuse: None - Past Medical History Cardiac Medical History: Reports: Hx Hypertension Endocrine Medical History: Reports: Hx Hypothyroidism Renal/ Medical History: Reports: Hx Ovarian Cysts. Denies: Hx Peritoneal Dialysis GI Medical History: Reports: Hx Colonoscopy Musculoskeltal Medical History: Reports Hx Multiple Sclerosis, Reports Hx Musculoskeletal Trauma Past Surgical History: Reports: Hx Abdominal Surgery, Hx Gynecologic Surgery - Removal of ovarian cyst, Hx Hysterectomy, Hx Nose Surgery - For fracture Physical Exam - Vital signs Vitals: Temp Pulse Resp BP Pulse Ox 98.1 F 84 18 116/86 H 96 06/04/18 13:26 06/04/18 13:26 06/04/18 13:26 06/04/18 13:26 06/04/18 13:26 Course - Vital Signs Vital signs: Temp Pulse Resp BP Pulse Ox 98.1 F 84 18 116/86 H 96 06/04/18 13:26 06/04/18 13:26 06/04/18 13:26 06/04/18 13:26 06/04/18 13:26 Doctor's Discharge - Discharge Referrals: ELSIE LARA MD [Primary Care Provider] - Follow up as needed
--- NOTE | 2018-06-04 14:36 | RADIOLOGY REPORT (SQ) ---
EXAM DESCRIPTION: CT HEAD WITHOUT COMPLETED DATE/TIME: 06/04/2018 2:26 pm REASON FOR STUDY: confusion, weakness COMPARISON: MRI 03/31/2017 TECHNIQUE: Axial images acquired through the brain without intravenous contrast. Images reviewed wi th bone, brain and subdural windows. Images stored on PACS. All CT scanners at this facility use dose modulation, iterative reconstruction, and/or weight based d osing when appropriate to reduce radiation dose to as low as reasonably achievable ([facility]). [facility]: Dose Right [facility]: CareDose [facility]: Dose Right [facility]: Teradose 4D [facility]: Smart Abiogenix RADIATION DOSE: CT Rad equipment meets quality standard of care and radiation dose reduction techniq ues were employed. CTDIvol: 53.2 mGy. DLP: 991 mGy-cm. mGy. LIMITATIONS: None. FINDINGS: VENTRICLES: Normal size and contour. CEREBRUM: No masses. No hemorrhage. No midline shift. No evidence for acute infarction. Normal gra y/white matter differentiation. No areas of low density in the white matter. CEREBELLUM: No masses. No hemorrhage. No alteration of density. No evidence for acute infarction. EXTRAAXIAL SPACES: No fluid collections. No masses. ORBITS AND GLOBE: No intra- or extraconal masses. Normal contour of globe without masses. CALVARIUM: No fracture. PARANASAL SINUSES: No fluid or mucosal thickening. SOFT TISSUES: No mass or hematoma. OTHER: No other significant finding. IMPRESSION: No acute intracranial findings. EVIDENCE OF ACUTE STROKE: NO. COMMENT: Quality ID # [id number]: Final reports with documentation of one or more dose reduction techniques (e.g., Automated exposure control, adjustment of the mA and/or kV according to patient size, use of iterative reconstruction technique) TECHNICAL DOCUMENTATION: JOB ID: [id number] [place]-72 2010 [employer]- All Rights Reserved Reading location - IP/workstation name: [email or web address]
[2018-06-04 14:40] LABS: ABSOLUTE EOSINOPHILS # (AUTO) 0.1 10^3/uL (0.0-0.6); ABSOLUTE LYMPHOCYTES (AUTO) 1.2 10^3/uL (0.5-4.7); ABSOLUTE MONOCYTES (AUTO) 0.4 10^3/uL (0.1-1.4); ABSOLUTE NEUT (AUTO) 5.8 10^3/uL (1.7-8.2); BASOPHILS % (AUTO) 0.6 % (0-2); EOSINOPHILS % (AUTO) 1.5 % (0-6); HEMATOCRIT 38.2 % (36.0-47.0); HEMOGLOBIN 13.5 g/dL (12.0-15.5); LYMPHOCYTES % (AUTO) 15.3 % (13-45); MEAN CORPUSCULAR HEMOGLOBIN 33.5 pg (27.0-33.4); MEAN CORPUSCULAR HGB CONC 35.5 g/dL (32.0-36.0); MEAN CORPUSCULAR VOLUME 95 fl (80-97); MONOCYTES % (AUTO) 5.9 % (3-13); PLATELET COUNT 248 10^3/uL (150-450); RED BLOOD COUNT 4.04 10^6/uL (3.72-5.28); RED CELL DISTRIBUTION WIDTH 12.7 % (11.5-14.0); SEGMENTED NEUTROPHILS % (AUTO) 76.7 % (42-78); TOTAL CELLS COUNTED % (AUTO) 100 %; WHITE BLOOD COUNT 7.6 10^3/uL (4.0-10.5)
[2018-06-04 14:41] LABS: VENOUS BLOOD HCO3 24.7 mmol/L (20-32); VENOUS BLOOD PCO2 44.3 mmHg (35-63); VENOUS BLOOD PH 7.36 (7.30-7.42)
[2018-06-04 14:43] LABS: PROTHROMBIN TIME 12.6 SEC (11.4-15.4)
[2018-06-04 14:44] LABS: APPEARANCE,URINE CLEAR; BILIRUBIN,URINE NEGATIVE (NEGATIVE); COLOR,URINE YELLOW; GLUCOSE, URINE NEGATIVE (NEGATIVE); KETONES,URINE NEGATIVE (NEGATIVE); LEUKOCYTE ESTERASE,URINE NEGATIVE (NEGATIVE); NITRITE,URINE NEGATIVE (NEGATIVE); PROTEIN,URINE NEGATIVE (NEGATIVE); URINE SPECIFIC GRAVITY 1.008; UROBILINOGEN,URINE NEGATIVE mg/dL (<2.0)
[2018-06-04 14:59] LABS: ALANINE AMINOTRANSFERASE 30 U/L (9-52); ALKALINE PHOSPHATASE 67 U/L (38-126); ANION GAP 12 (5-19); ASPARTATE AMINO TRANSFERASE 27 U/L (14-36); BILIRUBIN,DIRECT 0.3 mg/dL (0.0-0.4); BILIRUBIN,TOTAL 0.5 mg/dL (0.2-1.3); BLOOD UREA NITROGEN 10 mg/dL (7-20); CALCIUM 10.2 mg/dL (8.4-10.2); CARBON DIOXIDE 23 mmol/L (22-30); CHLORIDE 110 mmol/L (98-107); GLUCOSE 103 mg/dL (75-110); POTASSIUM 4.2 mmol/L (3.6-5.0); SODIUM 144.9 mmol/L (137-145); TOTAL PROTEIN 7.7 g/dL (6.3-8.2)
--- NOTE | 2018-06-04 15:15 | RADIOLOGY REPORT (SQ) ---
EXAM DESCRIPTION: ELBOW RIGHT OVER 2 VIEWS COMPLETED DATE/TIME: 06/04/2018 2:56 pm REASON FOR STUDY: right elbow pain, fall COMPARISON: None. EXAM PARAMETERS: NUMBER OF VIEWS: Four views. TECHNIQUE: AP, lateral and 2 oblique radiographic images acquired of the right elbow. LIMITATIONS: None. FINDINGS: MINERALIZATION: Normal. BONES: No acute fracture or dislocation. Small ossicle inferior to the medial epicondyle. No worris ome bone lesions. JOINTS: No effusion. SOFT TISSUES: No significant soft tissue swelling. No radiopaque foreign body. OTHER: No other significant finding. IMPRESSION: No acute fracture or dislocation. TECHNICAL DOCUMENTATION: JOB ID: [id number] [place]-72 2010 [employer]- All Rights Reserved Reading location - IP/workstation name: [email or web address]
--- NOTE | 2018-06-04 15:16 | RADIOLOGY REPORT (SQ) ---
EXAM DESCRIPTION: SHOULDER RIGHT 2 OR MORE VIEWS COMPLETED DATE/TIME: 06/04/2018 2:56 pm REASON FOR STUDY: right shoulder pain, fall COMPARISON: None. NUMBER OF VIEWS: Three views. TECHNIQUE: Internal rotation, external rotation, and Y view images acquired of the right shoulder. LIMITATIONS: None. FINDINGS: MINERALIZATION: Normal. BONES: No acute fracture or dislocation. No worrisome bone lesions. JOINTS: No dislocation. VISUALIZED LUNGS AND RIBS: No pneumothorax. No rib fracture. SOFT TISSUES: No radiopaque foreign body. OTHER: No other significant finding. IMPRESSION: NO RADIOGRAPHIC EVIDENCE OF ACUTE INJURY. TECHNICAL DOCUMENTATION: JOB ID: [id number] [place]-72 2010 [employer]- All Rights Reserved Reading location - IP/workstation name: [email or web address]
--- NOTE | 2018-06-04 15:17 | ER Document Report ---
ED General - General Chief Complaint: General Weakness Stated Complaint: WEAKNESS,MUSCLE PAIN Time Seen by Provider: 06/04/18 13:44 Primary Care Provider: ELSIE LARA MD [Primary Care Provider] - Follow up as needed Notes: 32-year-old female patient emergency department for evaluation of unsteadiness and falling. Patient has a history of MS. Diagnosed with MRI and spinal tap. Followed by local neurology group. States that she woke up late, was confused and generally not feeling well. Became very unstable on her feet. Fell and landed on her right side. Complaining of pain in the right chest, right hip/bu ttock area, right shoulder, neck and head. Having twitches. Denies any fever, chills, sweats. No recent changes in medication. She did start a recent biologic agent that she has been on for approximately 6 months for her MS. TRAVEL OUTSIDE OF THE [place] IN LAST 30 DAYS: No - HPI Onset: Just prior to arrival Severity: Moderate Pain Level: 4 - Related Data Allergies/Adverse Reactions: Penicillins Allergy (Intermediate, Verified 06/04/18 13:57) Hives Past Medical History - General Information source: Patient - Social History Smoking Status: Former Smoker Chew tobacco use (# tins/day): No Frequency of alcohol use: daily Drug Abuse: None Lives with: Family, Spouse/Significant other Family History: Reviewed & Not Pertinent Patient has suicidal ideation: No Patient has homicidal ideation: No - Past Medical History Cardiac Medical History: Reports: Hx Hypertension Endocrine Medical History: Reports: Hx Hypothyroidism Renal/ Medical History: Reports: Hx Ovarian Cysts. Denies: Hx Peritoneal Dialysis GI Medical History: Reports: Hx Colonoscopy Musculoskeletal Medical History: Reports Hx Multiple Sclerosis, Reports Hx Musculoskeletal Trauma Past Surgical History: Reports: Hx Abdominal Surgery, Hx Gynecologic Surgery - Removal of ovarian cyst, Hx Hysterectomy, Hx Nose Surgery - For fracture Review of Systems - Review of Systems Notes: Constitutional: denies: Chills, Diaphoresis, Fever, Malaise, +Weakness EENT: denies: Eye discharge, Blurred vision, Tearing, Double vision, Nose congestion, Nose discharge, Throat swelling, Mouth pain Cardiovascular: denies: Palpitations, Heart racing, Orthopnea, Dyspnea, Chest pain Respiratory: denies: Cough, Hurts to breathe, Wheezing, Shortness of breath Gastrointestinal: denies: Abdominal pain, Diarrhea, Nausea, Vomiting, Black stools, bright red blood in stool Genitourinary: denies: Burning, Dysuria, Discharge, Frequency, Flank pain, Hematuria Musculoskeletal: Pain in the right hip/buttocks, shoulder, chest wall. Hematologic/Lymphatic: denies: Anemia, Easy bleeding, Easy bruising, Blood clots Neurological/Psychological: history of multiple sclerosis with confusion today, unsteadiness, falling, weakness Skin: No lesions, no masses, no skin breakdown, no abscesses Physical Exam - Vital signs Vitals: Temp Pulse Resp BP Pulse Ox 98.1 F 84 18 116/86 H 96 06/04/18 13:26 06/04/18 13:26 06/04/18 13:26 06/04/18 13:26 06/04/18 13:26 Interpretation: Normal - General General appearance: Appears well, Alert - HEENT Head: Normocephalic, Atraumatic Eyes: Normal Pupils: PERRL - Respiratory Respiratory status: No respiratory distress Chest status: Nontender Breath sounds: Normal Chest palpation: Normal - Cardiovascular Rhythm: Regular Heart sounds: Normal auscultation Murmur: No - Abdominal Inspection: Normal Distension: No distension Bowel sounds: Normal Tenderness: Nontender Organomegaly: No organomegaly - Back Back: Normal, Nontender - Extremities General upper extremity: Other - She has some tenderness to palpation to the right shoulder. There is no deformity. There is full range of motion. General lower extremity: Other - Patient has some mild tenderness to palpation in the right gluteus lev/piriformis area on the right side. Full range of motion of the lower extremities at the knee and hip.. No: Thais's sign - Neurological Neuro grossly intact: Yes Cognition: Normal Orientation: AAOx4 Hazel Coma Scale Eye Opening: Spontaneous [place] Coma Scale Verbal: Oriented [place]el Coma Scale Motor: Obeys Commands [place] Coma Scale Total: 15 Speech: Normal Motor strength normal: LUE, RUE, LLE, RLE Sensory: Normal - Psychological Associated symptoms: Normal affect, Normal mood - Skin Skin Temperature: Warm Skin Moisture: Dry Skin Color: Normal Course - Re-evaluation Re-evalutation: 06/04/18 16:07 Laboratory 06/04/18 06/04/18 06/04/18 14:03 14:03 14:03 WBC 7.6 RBC 4.04 Hgb 13.5 Hct 38.2 MCV 95 MCH 33.5 H MCHC 35.5 RDW 12.7 Plt Count 248 Seg Neutrophils % 76.7 Lymphocytes % 15.3 Monocytes % 5.9 Eosinophils % 1.5 Basophils % 0.6 Absolute Neutrophils 5.8 Absolute Lymphocytes 1.2 Absolute Monocytes 0.4 Absolute Eosinophils 0.1 Absolute Basophils 0.0 PT 12.6 INR 0.90 VBG pH VBG pCO2 VBG HCO3 VBG Base Excess Sodium 144.9 Potassium 4.2 Chloride 110 H Carbon Dioxide 23 Anion Gap 12 BUN 10 Creatinine 1.31 H Est GFR ( Amer) 56 L Est GFR (Non-Af Amer) 46 L Glucose 103 POC Glucose Lactic Acid Calcium 10.2 Total Bilirubin 0.5 Direct Bilirubin 0.3 Neonat Total Bilirubin Not Reportable Neonat Direct Bilirubin Not Reportable Neonat Indirect Bili Not Reportable AST 27 ALT 30 Alkaline Phosphatase 67 Total Protein 7.7 Albumin 5.0 Urine Color Urine Appearance Urine pH Ur Specific Cannon Urine Protein Urine Glucose (UA) Urine Ketones Urine Blood Urine Nitrite Urine Bilirubin Urine Urobilinogen Ur Leukocyte Esterase Urine WBC (Auto) Urine RBC (Auto) U Hyaline Cast (Auto) Squamous Epi Cells Auto Urine Mucus (Auto) Urine Ascorbic Acid Urine HCG, Qual Urine Opiates Screen Urine Methadone Screen Ur Barbiturates Screen Ur Phencyclidine Scrn Ur Amphetamines Screen U Benzodiazepines Scrn Urine Cocaine Screen U Marijuana (THC) Screen 06/04/18 06/04/18 06/04/18 14:03 14:03 14:03 WBC RBC Hgb Hct MCV MCH MCHC RDW Plt Count Seg Neutrophils % Lymphocytes % Monocytes % Eosinophils % Basophils % Absolute Neutrophils Absolute Lymphocytes Absolute Monocytes Absolute Eosinophils Absolute Basophils PT INR VBG pH 7.36 VBG pCO2 44.3 VBG HCO3 24.7 VBG Base Excess -1.0 Sodium Potassium Chloride Carbon Dioxide Anion Gap BUN Creatinine Est GFR ( Amer) Est GFR (Non-Af Amer) Glucose POC Glucose Lactic Acid 1.2 Calcium Total Bilirubin Direct Bilirubin Neonat Total Bilirubin Neonat Direct Bilirubin Neonat Indirect Bili AST ALT Alkaline Phosphatase Total Protein Albumin Urine Color YELLOW Urine Appearance CLEAR Urine pH 6.0 Ur Specific Cannon 1.008 Urine Protein NEGATIVE Urine Glucose (UA) NEGATIVE Urine Ketones NEGATIVE Urine Blood NEGATIVE Urine Nitrite NEGATIVE Urine Bilirubin NEGATIVE Urine Urobilinogen NEGATIVE Ur Leukocyte Esterase NEGATIVE Urine WBC (Auto) 0 Urine RBC (Auto) 0 U Hyaline Cast (Auto) 12 Squamous Epi Cells Auto 1 Urine Mucus (Auto) RARE Urine Ascorbic Acid NEGATIVE Urine HCG, Qual Urine Opiates Screen Urine Methadone Screen Ur Barbiturates Screen Ur Phencyclidine Scrn Ur Amphetamines Screen U Benzodiazepines Scrn Urine Cocaine Screen U Marijuana (THC) Screen 06/04/18 06/04/18 06/04/18 14:03 14:03 14:08 WBC RBC Hgb Hct MCV MCH MCHC RDW Plt Count Seg Neutrophils % Lymphocytes % Monocytes % Eosinophils % Basophils % Absolute Neutrophils Absolute Lymphocytes Absolute Monocytes Absolute Eosinophils Absolute Basophils PT INR VBG pH VBG pCO2 VBG HCO3 VBG Base Excess Sodium Potassium Chloride Carbon Dioxide Anion Gap BUN Creatinine Est GFR ( Amer) Est GFR (Non-Af Amer) Glucose POC Glucose 104 Lactic Acid Calcium Total Bilirubin Direct Bilirubin Neonat Total Bilirubin Neonat Direct Bilirubin Neonat Indirect Bili AST ALT Alkaline Phosphatase Total Protein Albumin Urine Color Urine Appearance Urine pH Ur Specific Cannon Urine Protein Urine Glucose (UA) Urine Ketones Urine Blood Urine Nitrite Urine Bilirubin Urine Urobilinogen Ur Leukocyte Esterase Urine WBC (Auto) Urine RBC (Auto) U Hyaline Cast (Auto) Squamous Epi Cells Auto Urine Mucus (Auto) Urine Ascorbic Acid Urine HCG, Qual NEGATIVE Urine Opiates Screen NEGATIVE Urine Methadone Screen NEGATIVE Ur Barbiturates Screen NEGATIVE Ur Phencyclidine Scrn NEGATIVE Ur Amphetamines Screen NEGATIVE U Benzodiazepines Scrn NEGATIVE Urine Cocaine Screen NEGATIVE U Marijuana (THC) Screen NEGATIVE Ribs w/Chest X-Ray 06/04/18 13:51 IMPRESSION: NO PNEUMOTHORAX. NO RIB FRACTURES. Elbow X-Ray 06/04/18 13:52 IMPRESSION: No acute fracture or dislocation. Shoulder X-Ray 06/04/18 13:52 IMPRESSION: NO RADIOGRAPHIC EVIDENCE OF ACUTE INJURY. Head CT 06/04/18 13:53 IMPRESSION: No acute intracranial findings. EVIDENCE OF ACUTE STROKE: NO. Cervical Spine X-Ray 06/04/18 15:16 IMPRESSION: No acute findings. Pelvis X-Ray 06/04/18 15:16 IMPRESSION: NEGATIVE STUDY OF THE PELVIS. There is no significant abnormalities with the labs at this time. More likely patient is experiencing some sort of an MS flare. 06/04/18 17:29 I was unable to make contact with her neurologist. At this time patient is feeling much better. There is no evidence of infection. Based on previous experience I am going to write her for another dose of Medrol tomorrow and also make sure that she gets in contact with her neurologist. This should suffice to get her through this acute flare. Patient been given warning signs to return for any worsening symptoms or concerns. - Vital Signs Vital signs: Temp Pulse Resp BP Pulse Ox 98.1 F 84 18 116/86 H 96 06/04/18 13:26 06/04/18 13:26 06/04/18 13:26 06/04/18 13:26 06/04/18 13:26 - Laboratory Result Diagrams: 06/04/18 14:03 06/04/18 14:03 Laboratory results interpreted by me: 06/04/18 06/04/18 14:03 14:03 MCH 33.5 H Chloride 110 H Creatinine 1.31 H Est GFR ( Amer) 56 L Est GFR (Non-Af Amer) 46 L Discharge - Discharge Clinical Impression: Multiple sclerosis exacerbation Condition: Good Disposition: HOME, SELF-CARE Instructions: Weakness ([facility]) Additional Instructions: More than likely you have had an acute flareup of your multiple sclerosis. You were given a large dose of steroids today to help with the inflammatory response. The traditional therapy is to receive 1-2 days more high-dose steroids followed by a taper of steroids. It would be best that you speak with your neurologist tomorrow to decide what their particular treatment protocol is. In the event that you cannot be seen by your neurologist I have written you for 2 repeat doses of IV Solu-Medrol which should be able to be performed here at the hospital. We would then start you on a steroid taper. In the event that you have any worsening symptoms please return. Prescriptions: Methylprednisolone [Medrol 4 mg Tablet] 4 mg PO DAILY 20 Days #40 tablet Referrals: ELSIE LARA MD [Primary Care Provider] - Follow up as needed BHUMI BRIGHT MD [NO LOCAL MD] - Follow up tomorrow
--- NOTE | 2018-06-04 15:19 | RADIOLOGY REPORT (SQ) ---
EXAM DESCRIPTION: RIBS RIGHT W/PA CHEST COMPLETED DATE/TIME: 06/04/2018 2:56 pm REASON FOR STUDY: fall, right rib pain COMPARISON: None. TECHNIQUE: Frontal view of the chest and additional views of the right ribs acquired. NUMBER OF VIEWS: Four view. LIMITATIONS: None. FINDINGS: FRONTAL CXR: No pneumothorax. No pleural effusion. No atelectasis or infiltrates. RIBS: No displaced rib fractures. No lytic or blastic bony lesions. OTHER: No other significant finding. IMPRESSION: NO PNEUMOTHORAX. NO RIB FRACTURES. COMMENT: SITE OF TRAUMA/COMPLAINT MARKED/STAMP COMPLETED: NO. TECHNICAL DOCUMENTATION: JOB ID: [id number] [place]-72 2010 [employer]- All Rights Reserved Reading location - IP/workstation name: [employer]
--- NOTE | 2018-06-04 15:54 | EKG REPORT ---
SEVERITY:- ABNORMAL ECG - SINUS RHYTHM INFERIOR Q WAVES, PROBABLY NORMAL VARIATION BORDERLINE T ABNORMALITIES, ANTERIOR LEADS : Confirmed by: Tony Padilla MD 04-Jun-2018 15:53:42
[2018-06-04 15:57] LABS: URINE AMPHETAMINES SCREEN NEGATIVE; URINE BARBITURATES SCREEN NEGATIVE; URINE BENZODIAZEPINES SCREEN NEGATIVE; URINE COCAINE SCREEN NEGATIVE; URINE MARIJUANA (THC) SCREEN NEGATIVE; URINE METHADONE SCREEN NEGATIVE; URINE PHENCYCLIDINE SCREEN NEGATIVE
--- NOTE | 2018-06-04 16:00 | RADIOLOGY REPORT (SQ) ---
EXAM DESCRIPTION: CERV SP 3 VIEW OR LESS COMPLETED DATE/TIME: 06/04/2018 3:48 pm REASON FOR STUDY: fall, pain COMPARISON: None. NUMBER OF VIEWS: Three views. TECHNIQUE: AP, lateral and odontoid radiographic images acquired of the cervical spine. LIMITATIONS: Limited visualization C7. FINDINGS: There is reversal of the lordotic curve. No fracture identified. Cervical disc disease C 4-5 through C6-7. Prevertebral soft tissues normal. IMPRESSION: No acute findings. TECHNICAL DOCUMENTATION: JOB ID: [id number] [employer]- All Rights Reserved Reading location - IP/workstation name: [email or web address]
--- NOTE | 2018-06-04 16:03 | RADIOLOGY REPORT (SQ) ---
EXAM DESCRIPTION: PELVIS AP COMPLETED DATE/TIME: 06/04/2018 3:48 pm REASON FOR STUDY: fall, pain COMPARISON: None. NUMBER OF VIEWS: One view TECHNIQUE: AP Pelvis LIMITATIONS: None. FINDINGS: MINERALIZATION: Normal. HIPS: No acute fracture or dislocation. No worrisome bone lesions. PELVIS AND SACRUM: No acute fracture or dislocation. No worrisome bone lesions. PUBIS AND ISCHIUM: No acute fracture. LOWER LUMBAR SPINE: No significant findings as visualized. SOFT TISSUES: No findings. OTHER: No other significant finding. IMPRESSION: NEGATIVE STUDY OF THE PELVIS. COMMENT: Pelvic fractures are often occult on plain radiographs. If strong clinical suspicion for f racture, recommend CT or MR. TECHNICAL DOCUMENTATION: JOB ID: [id number] [employer]- All Rights Reserved Reading location - IP/workstation name: [email or web address]
[2018-06-04 18:28] VITALS: BP 122/84
== END 2018-06-04 18:28 | disposition home or self-care (01) ==
LOC: ER 13:18
DX: G35 Multiple sclerosis (principal); Z79.899 Other long term (current) drug therapy; R26.81 Unsteadiness on feet; R41.0 Disorientation, unspecified; R07.9 Chest pain, unspecified; M25.551 Pain in right hip; M25.511 Pain in right shoulder; M54.2 Cervicalgia; R51 Headache; I10 Essential (primary) hypertension; Z88.0 Allergy status to penicillin; Z87.891 Personal history of nicotine dependence
CPT/HCPCS: 93005; 96376; 99285; 96361; 96374; 96375; 36415; 87040; 87086; 82962; 85025; 85610; 81025; 80053; 81001; 80307; 82803; 83605; 72040; 73080; 72170; 71101; 73030; 70450; 93010; J2920; J1885; J2405; J7030

== ENCOUNTER 2018-12-08 10:00 | Emergency (ER) | payer MEDICARE, MEDICAID ==
[2018-12-08] MEDS ORDERED: NORMAL SALINE 1000 ML 1,000 ML IV ONE (10:21)
[2018-12-08] MEDS ORDERED: ONDANSETRON HCL INJ/PF 4 MG/2 ML SDV IV ONE (10:21)
--- NOTE | 2018-12-08 10:22 | ER Document Report ---
ED Medical Screen (RME) - General Chief Complaint: Diarrhea Stated Complaint: DIARRHEA Time Seen by Provider: 12/08/18 10:16 Primary Care Provider: ELSIE LARA MD [Primary Care Provider] - Follow up as needed Mode of Arrival: Ambulatory Information source: Patient Notes: Patient is a 33-year-old female with past medical history of MS and colitis presenting with 4-week history of persistent diarrhea. Patient reports she is having diarrhea at least 12 times per day. She reports associated chills but denies fever. She also reports nausea but denies vomiting. She denies any urinary symptoms. Exam: Mild generalized tenderness to abdomen. I have greeted and performed a rapid initial assessment of this patient. A comprehensive ED assessment and evaluation of the patient, analysis of test results and completion of the medical decision making process will be conducted by additional ED providers. I have specifically instructed the patient or family members with the patient to immediately return to any nursing staff should anything change in the patient's condition or with their chief complaint. This medical record was dictated with voice recognizing software. There may be grammatical, syntax errors that are unintended. TRAVEL OUTSIDE OF THE [place] IN LAST 30 DAYS: No - Related Data Allergies/Adverse Reactions: Penicillins Allergy (Intermediate, Verified 12/08/18 10:08) Hives Past Medical History - Past Medical History Cardiac Medical History: Reports: Hx Heart Attack - hx of tachycardia, Hx Hypertension - stopped taking medicaton 2 weeks ago Pulmonary Medical History: Reports: Hx Asthma Denies: Hx Bronchitis, Hx COPD, Hx Pneumonia Neurological Medical History: Denies: Hx Cerebrovascular Accident, Hx Seizures Endocrine Medical History: Reports: Hx Hypothyroidism Renal/ Medical History: Reports: Hx Ovarian Cysts. Denies: Hx Peritoneal Dialysis GI Medical History: Reports: Hx Colonoscopy Musculoskeltal Medical History: Denies Hx Arthritis, Reports Hx Multiple Sclerosis, Reports Hx Musculoskeletal Trauma Past Surgical History: Reports: Hx Abdominal Surgery, Hx Gynecologic Surgery - Removal of ovarian cyst, Hx Hysterectomy, Hx Nose Surgery - For fracture Physical Exam - Vital signs Vitals: Temp Pulse Resp BP Pulse Ox 97.7 F 73 20 120/74 94 12/08/18 10:09 12/08/18 10:09 12/08/18 10:09 12/08/18 10:12/08/18 10:09 Course - Vital Signs Vital signs: Temp Pulse Resp BP Pulse Ox 97.7 F 73 20 120/74 94 12/08/18 10:09 12/08/18 10:09 12/08/18 10:09 12/08/18 10:09 12/08/18 10:09 Doctor's Discharge - Discharge Referrals: ELSIE LARA MD [Primary Care Provider] - Follow up as needed
[2018-12-08 11:00] LABS: ABSOLUTE BASOPHILS # (AUTO) 0.1 10^3/uL (0.0-0.2); ABSOLUTE EOSINOPHILS # (AUTO) 0.6 10^3/uL (0.0-0.6); ABSOLUTE LYMPHOCYTES (AUTO) 1.5 10^3/uL (0.5-4.7); ABSOLUTE MONOCYTES (AUTO) 0.3 10^3/uL (0.1-1.4); BASOPHILS % (AUTO) 1.8 % (0-2); EOSINOPHILS % (AUTO) 8.6 % (0-6); HEMATOCRIT 35.9 % (36.0-47.0); LYMPHOCYTES % (AUTO) 22.3 % (13-45); MEAN CORPUSCULAR HEMOGLOBIN 33.3 pg (27.0-33.4); MEAN CORPUSCULAR HGB CONC 33.4 g/dL (32.0-36.0); MEAN CORPUSCULAR VOLUME 100 fl (80-97); MONOCYTES % (AUTO) 5.3 % (3-13); PLATELET COUNT 235 10^3/uL (150-450); RED CELL DISTRIBUTION WIDTH 13.3 % (11.5-14.0); TOTAL CELLS COUNTED % (AUTO) 100 %; WHITE BLOOD COUNT 6.5 10^3/uL (4.0-10.5)
[2018-12-08 11:02] LABS: APPEARANCE,URINE CLEAR; BILIRUBIN,URINE NEGATIVE (NEGATIVE); COLOR,URINE STRAW; GLUCOSE, URINE NEGATIVE (NEGATIVE); KETONES,URINE NEGATIVE (NEGATIVE); LEUKOCYTE ESTERASE,URINE NEGATIVE (NEGATIVE); NITRITE,URINE NEGATIVE (NEGATIVE); PROTEIN,URINE NEGATIVE (NEGATIVE); URINE SPECIFIC GRAVITY 1.006; UROBILINOGEN,URINE NEGATIVE mg/dL (<2.0)
[2018-12-08 11:21] LABS: ALBUMIN 4.4 g/dL (3.5-5.0); ALKALINE PHOSPHATASE 57 U/L (38-126); ANION GAP 11 (5-19); ASPARTATE AMINO TRANSFERASE 34 U/L (14-36); BILIRUBIN,DIRECT 0.5 mg/dL (0.0-0.4); BILIRUBIN,TOTAL 0.5 mg/dL (0.2-1.3); BLOOD UREA NITROGEN 17 mg/dL (7-20); CALCIUM 9.6 mg/dL (8.4-10.2); CARBON DIOXIDE 26 mmol/L (22-30); CHLORIDE 104 mmol/L (98-107); GLUCOSE 105 mg/dL (75-110); POTASSIUM 5.6 mmol/L (3.6-5.0); TOTAL PROTEIN 7.3 g/dL (6.3-8.2)
--- NOTE | 2018-12-08 12:50 | ER Document Report ---
ED GI/ - General Chief Complaint: Diarrhea Stated Complaint: DIARRHEA Time Seen by Provider: 12/08/18 10:16 Primary Care Provider: ELSIE LARA MD [ACTIVE STAFF] - Follow up as needed Mode of Arrival: Ambulatory Information source: Patient Notes: HPI: 33-year-old female with past medical history as recorded including MS who presents today stating that she has had daily diarrhea for 1 month. She states some mild upper and lower abdominal cramping with the diarrhea. Intermittent vomiting, but no vomiting in the last 3 days. No fevers. She does state chills. No dysuria or back pain. Patient states that she has had some intermittent rectal bleeding. She denies any blood in the vomit. Patient states she has a history of this similarly and was told she had colitis in the past. She states she has had more than one colonoscopy with some polypectomies performed. Patient is on MS medications but denies any recent steroids or change to her MS dosing regimen. No recent antibiotics. No trips or travel out of the country. ROS: See HPI All other review of systems reviewed and otherwise negative Reviewed vital signs and nursing note as charted by RN. PHYSICAL EXAM: CONSTITUTIONAL: Alert and oriented and responds appropriately to questions. Wel l-appearing; well-nourished HEAD: Normocephalic; atraumatic EYES: PERRL; Conjunctivae clear, sclerae non-icteric ENT: Moist mucous membranes; posterior pharyngeal lesions present NECK: Supple without meningismus; non-tender; no cervical lymphadenopathy, no masses CARD: Regular rate and rhythm; no murmurs; symmetric distal pulses RESP: Normal chest excursion without splinting or tachypnea; breath sounds clear and equal bilaterally; no wheezes, no rhonchi, no rales ABD/GI: Normal bowel sounds; non-distended; soft, minimally tender without rebound or guarding to the upper and lower quadrants of the abdomen BACK: The back appears normal and is non-tender to palpation EXT: Normal ROM in all joints; non-tender to palpation; no edema SKIN: No acute lesions noted NEURO: CN 2-12 intact; 5/5 bilateral upper and lower extremity strength with sensation intact to light touch PSYCH: The patient's mood and manner are appropriate. Grooming and personal hygiene are appropriate. TRAVEL OUTSIDE OF THE [place] IN LAST 30 DAYS: No - Related Data Allergies/Adverse Reactions: Penicillins Allergy (Intermediate, Verified 12/08/18 10:08) Hives Past Medical History - General Information source: Patient - Social History Smoking Status: Current Every Day Smoker Family History: Reviewed & Not Pertinent Patient has suicidal ideation: No Patient has homicidal ideation: No - Past Medical History Cardiac Medical History: Reports: Hx Heart Attack - hx of tachycardia, Hx Hypercholesterolemia, Hx Hypertension - stopped taking medicaton 2 weeks ago Pulmonary Medical History: Reports: Hx Asthma Denies: Hx Bronchitis, Hx COPD, Hx Pneumonia Neurological Medical History: Denies: Hx Cerebrovascular Accident, Hx Seizures Endocrine Medical History: Reports: Hx Hypothyroidism Renal/ Medical History: Reports: Hx Ovarian Cysts. Denies: Hx Peritoneal Dialysis GI Medical History: Reports: Hx Colonoscopy Musculoskeletal Medical History: Denies Hx Arthritis, Reports Hx Multiple Sclerosis, Reports Hx Musculoskeletal Trauma Past Surgical History: Reports: Hx Abdominal Surgery, Hx Gynecologic Surgery - Removal of ovarian cyst, Hx Hysterectomy, Hx Nose Surgery - For fracture Physical Exam - Vital signs Vitals: Temp Pulse Resp BP Pulse Ox 97.7 F 73 20 120/74 94 12/08/18 10:12/08/18 10:12/08/18 10:12/08/18 10:12/08/18 10:09 Course - Re-evaluation Re-evalutation: Given the history and physical examination, we will obtain basic labs, liver panel, lipase, stool culture, and obtain a CT scan of the abdomen and pelvis. Patient will be checked for possibility of acute anemia acute intra-abdominal infection. No recent trips or travel. No recent antibiotics. 12/08/18 12:50 Labs thus far as recorded. Hemoglobin as recorded. 12/08/18 15:00 Labs and urine analysis as well as a CT scan of the abdomen and pelvis as recorded. Patient has had no vomiting or diarrhea here. Rectal examination shows no gross blood with Hemoccult negative stool. Repeat examination is much improved. No pain medications have been provided. Patient will be discharged home with strict return precautions and follow-up with the primary pit crew support worker and physician. Strict return precautions have been explained. - Vital Signs Vital signs: Temp Pulse Resp BP Pulse Ox 97.7 F 73 20 120/74 94 12/08/18 10:12/08/18 10:12/08/18 10:12/08/18 10:12/08/18 10:09 - Laboratory Result Diagrams: 12/08/18 10:32 12/08/18 10:32 Laboratory results interpreted by me: 12/08/18 12/08/18 10:32 10:32 RBC 3.60 L Hct 35.9 L MCV 100 H Eos % (Auto) 8.6 H Potassium 5.6 H Direct Bilirubin 0.5 H Discharge - Discharge Clinical Impression: Vomiting and diarrhea, Abdominal discomfort Condition: Good Disposition: HOME, SELF-CARE Additional Instructions: Come back immediately with any worsening vomiting or diarrhea, pain, fevers, change in location or quality of pain, or any other acute problems. Please make sure that you follow-up with the pit crew support worker as we have discussed. Prescriptions: Ondansetron [Zofran Odt 4 mg Tablet] 1 tab PO Q6H #15 tab.rapdis Referrals: ELSIE LARA MD [ACTIVE STAFF] - Follow up as needed
--- NOTE | 2018-12-08 13:18 | RADIOLOGY REPORT (SQ) ---
EXAM DESCRIPTION: CT ABD/PELVIS WITH IV ONLY COMPLETED DATE/TIME: 12/08/2018 1:05 pm REASON FOR STUDY: 37; bloating, pain, blood clots COMPARISON: 07/22/2017 TECHNIQUE: CT scan of the abdomen and pelvis performed using helical scanning technique with dynamic intravenous contrast injection. No oral contrast. Images reviewed with lung, soft tissue, and bone windows. Reconstructed coronal and sagittal MPR images reviewed. Delayed images for evaluation of the urinary system also acquired. All images stored on PACS. All CT scanners at this facility use dose modulation, iterative reconstruction, and/or weight based d osing when appropriate to reduce radiation dose to as low as reasonably achievable (ALARA). [facility]: Dose Right [facility]: CareDose [facility]: Dose Right [facility]: Teradose 4D [facility]: [employer] CONTRAST TYPE AND DOSE: contrast/concentration: Isovue 350.00 mg/ml; Total Contrast Delivered: 83.0 ml; Total Saline Delivered: 39.8 ml RENAL FUNCTION: None required. The patient is less than 50 years old. RADIATION DOSE: CT Rad equipment meets quality standard of care and radiation dose reduction techniq ues were employed. CTDIvol: 6.9 - 9.6 mGy. DLP: 855 mGy-cm.. LIMITATIONS: None. FINDINGS: LOWER CHEST: No significant findings. No nodules or infiltrates. LIVER: Normal size. No masses. No dilated ducts. Small hepatic cyst is again noted and unchanged. SPLEEN: Normal size. No focal lesions. PANCREAS: No masses. No significant calcifications. No adjacent inflammation or peripancreatic fluid collections. Pancreatic duct not dilated. GALLBLADDER: Contracted. No inflammatory changes. ADRENAL GLANDS: No significant masses or asymmetry. RIGHT KIDNEY AND URETER: No solid masses. No significant calcifications. No hydronephrosis or hyd roureter. LEFT KIDNEY AND URETER: No solid masses. No significant calcifications. No hydronephrosis or hydr oureter. AORTA AND VESSELS: No aneurysm. No dissection. Renal arteries, SMA, celiac without stenosis. RETROPERITONEUM: No retroperitoneal adenopathy, hemorrhage or masses. BOWEL AND PERITONEAL CAVITY: No masses or inflammatory changes. No free fluid or peritoneal masses. APPENDIX: Normal. PELVIS: No mass. No free fluid. Normal bladder. ABDOMINAL WALL: No masses. No hernias. BONES: No significant or acute findings. OTHER: No other significant finding. IMPRESSION: NO SIGNIFICANT OR ACUTE FINDING IN THE ABDOMEN OR PELVIS ON CT SCAN WITH IV CONTRAST. TECHNICAL DOCUMENTATION: JOB ID: [id number] Quality ID # [id number]: Final reports with documentation of one or more dose reduction techniques (e.g., Au tomated exposure control, adjustment of the mA and/or kV according to patient size, use of iterative reconstruction technique) 2010 [employer]- All Rights Reserved Reading location - IP[facility]workstation name: [email or web address]
[2018-12-08 15:18] VITALS: BP 115/70
== END 2018-12-08 15:18 | disposition home or self-care (01) ==
LOC: ER 10:00
DX: R19.7 Diarrhea, unspecified (principal); R11.10 Vomiting, unspecified; R10.9 Unspecified abdominal pain; F17.200 Nicotine dependence, unspecified, uncomplicated; G35 Multiple sclerosis; I10 Essential (primary) hypertension; I25.2 Old myocardial infarction; Z88.0 Allergy status to penicillin
CPT/HCPCS: 99284; 96361; 96374; 36415; 83690; 85025; 81025; 80053; 81001; 74177; J2405; J7030

== ENCOUNTER → 2019-03-23 | Outpatient (CLI) | payer MEDICARE, MEDICAID ==
[2019-03-23 10:33] LABS: HEMATOCRIT 42.1 % (36.0-47.0); HEMOGLOBIN 14.5 g/dL (12.0-15.5); MEAN CORPUSCULAR HEMOGLOBIN 33.5 pg (27.0-33.4); MEAN CORPUSCULAR HGB CONC 34.6 g/dL (32.0-36.0); MEAN CORPUSCULAR VOLUME 97 fl (80-97); PLATELET COUNT 252 10^3/uL (150-450); RED BLOOD COUNT 4.34 10^6/uL (3.72-5.28); RED CELL DISTRIBUTION WIDTH 12.9 % (11.5-14.0); WHITE BLOOD COUNT 7.3 10^3/uL (4.0-10.5)
[2019-03-23 10:35] LABS: APPEARANCE,URINE SLIGHTLY-CLOUDY; BILIRUBIN,URINE NEGATIVE (NEGATIVE); COLOR,URINE YELLOW; GLUCOSE, URINE NEGATIVE (NEGATIVE); KETONES,URINE NEGATIVE (NEGATIVE); LEUKOCYTE ESTERASE,URINE NEGATIVE (NEGATIVE); NITRITE,URINE NEGATIVE (NEGATIVE); PROTEIN,URINE 100 mg/dL (NEGATIVE); URINE SPECIFIC GRAVITY 1.014; UROBILINOGEN,URINE NEGATIVE mg/dL (<2.0)
== END ==
LOC: OD 09:35
PROVIDERS: ATTEND Urology
DX: Z01.818 Encounter for other preprocedural examination (principal); N39.3 Stress incontinence (female) (male)
CPT/HCPCS: 36415; 81005; 84132; 85027; 87086